=== PATIENT | male | born 1960 | race Caucasian/White ===

== ENCOUNTER 2017-02-10 10:45 | Emergency (ER) | payer SELFPAY ==
--- NOTE | 2017-02-15 15:21 | ER ---
ADMIT: 02/10/2017 RM/LOC: [facility] MR#: [id number] [id number] [place], [place] [address] [address] [place] [address] Emergency Room Report SEX: M AGE: 56 : 1960 DATE: 02/10/2017 HISTORY OF PRESENT ILLNESS: The patient is 56-year-old, male from [place], presents to emergency room complaining of fever, right ear pain, and cold symptoms. This has been going on for about three to seven days. accompanies him sitting on the side of the bed. He has had some productive cough with green sputum and a fever, but he is unable to tell me how high his fever was. PAST MEDICAL HISTORY: ID, heart attacks with two stents. MEDICATIONS: He takes no medication. ALLERGIES: HE HAS NO ALLERGIES. SOCIAL HISTORY: He drinks alcohol occasionally and smokes a cigar every once in a while. PHYSICAL EXAMINATION: VITAL SIGNS: His blood pressure is 137/77, heart rate 67, respirations 18, temp 98.6. His physical examination is totally negative but more indicative of an upper respiratory infection than it is any other issue. On examination, his nasal mucosa is boggy. Right ear is erythematous but the tympanic membrane is patent. No fluid is seen. He does have some eustachian tube dysfunction with tenderness underneath the right ear. Posterior pharynx is clear. No erythema and no exudates and no lymphadenopathy. LABORATORY DATA: I did do labs because of his ID and the condition of his cough. He explained that he works at [employer] and is exposed to a fan that hits him straight in the right ear. His labs were all negative. His glucose was ADMIT: 02/10/2017 RM/LOC: [facility] MR#: [id number] [address] [address] [address] [place] [address] Emergency Room Report SEX: M AGE: 56 : 1960 106 and the white blood cell count is 10.8. CLINICAL IMPRESSION: At this point is upper respiratory infection with eustachian tube dysfunction. DISPOSITION: Given meclizine and instructed how to use it. I encouraged to follow up with his primary provider. I gave him [facility] Call Dr. Sandoval. I encouraged handwashing, nasal rinse with saline spray, follow up with PCP for further care, meclizine for ear congestion, cover ears when outside or working at [employer]. Go home and rest. Use Tylenol or Motrin for symptoms. The patient was discharged with [place]. At this point, he said his ear was aching and he is on the way home. is driving him. KASEY Mckeon / Raul Swanson MD / hildal JOB #: [id number] CC: Raul Swanson MD, Attending Physician UNKNOWN, Family Physician
== END 2017-02-10 14:25 | disposition home or self-care (01) ==
LOC: ER 10:45
DX: J06.9 Acute upper respiratory infection, unspecified (principal); H69.91 Unspecified Eustachian tube disorder, right ear; I25.2 Old myocardial infarction; F17.210 Nicotine dependence, cigarettes, uncomplicated; Z95.5 Presence of coronary angioplasty implant and graft

== ENCOUNTER 2017-02-12 23:41 | Emergency (ER) | payer SELFPAY ==
--- NOTE | 2017-03-19 15:38 | ER ---
ADMIT: 02/12/2017 RM/LOC: [facility] MR#: [id number] [address] [address] [address]IA ABREUGE [address] [place] [address] Emergency Room Report SEX: M AGE: 56 : 1960 DATE: 02/12/2017 HISTORY OF PRESENT ILLNESS: A 56-year-old with an earache for the past 2 days. He is very vague in his history. See T-sheet for remainder of history and physical. The patient is diagnosed with otitis media and given amoxicillin in the Emergency Department. Prescription for amoxicillin for 14 days. Instructed to follow up with his primary doctor if not better in 3 or 4 days. Raul Swanson MD/ ernesto JOB #: [id number] CC: Jaxson Silver MD, Attending Physician
== END 2017-02-13 01:55 | disposition home or self-care (01) ==
LOC: ER 23:41
DX: H66.91 Otitis media, unspecified, right ear (principal); Z79.899 Other long term (current) drug therapy